=== PATIENT | male | born 1950 | race Caucasian/White ===

== ENCOUNTER 2022-09-24 08:08 | Emergency (ER) | payer OTHER ==
[~2022-09-24] VITALS: Ht 177.8 cm; Wt 108.9 kg
[~2022-09-24 08:08] MED LIST: DONE10 PO; DONE5 PO; QUETIAPINE FUMA50 MG PO; SALM50IP PO; Seroquel50 MG PO; WARF1; [UNRECOGNIZED DRUG - REMARK]; [UNRECOGNIZED DRUG - REMARK]
[2022-09-24 09:15] LABS: BASOPHILS ABSOLUTE AUTO 0.04 K/mm3 (0.00-0.23); BASOPHILS PERCENT AUTO 0 % (0-2); EOSINOPHILS ABSOLUTE AUTO 0.01 K/mm3 (0.00-0.68); EOSINOPHILS PERCENT AUTO 0 % (0-6); Hematocrit 41.7 % (37.0-53.0); Hemoglobin 13.4 g/dL (13.5-17.5); IMMATURE GRAN ABSOLUTE AUTO 0.05 K/mm3 (0.00-0.10); IMMATURE GRAN PERCENT AUTO 0 % (0-1); LYMPHOCYTES ABSOLUTE AUTO 0.53 K/mm3 (0.84-5.20); LYMPHOCYTES PERCENT AUTO 4 % (21-46); MONOCYTES ABSOLUTE AUTO 1.61 K/mm3 (0.16-1.47); MONOCYTES PERCENT AUTO 12 % (4-13); Mean Corpuscular HGB 26.5 pg (26.0-34.0); Mean Corpuscular HGB Conc 32.1 g/dL (31.5-36.5); Mean Corpuscular Volume 82 fL (80-100); Mean Platelet Volume 10.6 fL (9.1-12.4); NEUTROPHILS ABSOLUTE AUTO 11.48 K/mm3 (1.96-9.15); NEUTROPHILS PERCENT AUTO 84 % (41-73); Platelet Count 262 K/mm3 (150-400); RDW Coefficient Variation 14.4 % (11.7-14.2); RDW Standard Deviation 42.8 fL (35.1-46.3); Red Blood Cell Count 5.06 M/mm3 (4.30-5.90); White Blood Cell Count 13.72 K/mm3 (4.00-11.30)
[2022-09-24 09:51] LABS: Albumin, Blood 3.6 g/dL (3.4-5.0); Bilirubin, Total 0.5 mg/dL (0.1-1.0); Bun/Creatinine Ratio 18.5 (12.0-20.0); Calcium, Blood 9.4 mg/dL (8.5-10.1); Creatinine, Blood 0.87 mg/dL (0.60-1.20); Globulin, Blood 3.7 g/dL (2.2-4.0); Potassium, Blood 3.6 mmol/L (3.5-5.5); Total Protein, Blood 7.3 g/dL (6.4-8.2)
[2022-09-24 10:31] LABS: Creatine Kinase MB 33.4 ng/mL (0.0-3.6); Creatine Kinase MB Index 1.6 (0.0-4.0)
[2022-09-24 12:22] LABS: Source, Urine Straight Cath
[2022-09-24] MEDS ORDERED: DONEPEZIL HCL10 M1 PO (12:26)
[2022-09-24] MEDS ORDERED: PRAVASTATIN SOD10 MG PO (12:27)
[2022-09-24] MEDS ORDERED: REMERON30 M9 PO (12:27)
[2022-09-24] MEDS ORDERED: QUETIAPINE FUMA25 MG PO (12:27)
[2022-09-24 12:30] LABS: Appearance, Urine Clear (Clear); Bilirubin, Urine Neg (Neg); Blood, Urine 1+ (Neg); Color, Urine Yellow (P-Yellow); Glucose Qualitative, Urine Neg (Neg); Ketones, Urine 3+ (Neg); Leukocyte Esterase, Urine 1+ (Neg); Nitrite, Urine Neg (Neg); Protein, Urine 2+ (Neg); Specific Gravity, Urine 1.025 (1.003-1.022); Urobilinogen, Urine NORM (Normal)
[2022-09-24 12:36] LABS: Bacteria Rare /hpf; Mucus Mod (0-Heavy); Squamous Epithelial Cells Few /hpf (Few)
[2022-09-24 13:30] VITALS: BP 123/74
== END 2022-09-24 13:51 | disposition home or self-care (01) ==
LOC: ER 08:08
PROVIDERS: Student in an Organized Health Care Education/Training Program
DX: R29.6 Repeated falls (principal); G30.9 Alzheimer's disease, unspecified; F02.80 Dementia in other diseases classified elsewhere, unspecified severity, without behavioral disturbance, psychotic disturbance, mood disturbance, and anxiety; R74.8 Abnormal levels of other serum enzymes; I69.354 Hemiplegia and hemiparesis following cerebral infarction affecting left non-dominant side; I69.328 Other speech and language deficits following cerebral infarction; Z79.899 Other long term (current) drug therapy
CPT/HCPCS: 51701; 70450; 80053; 81001; 82550; 82553; 85025; 93005; 93010; 96360; 99285-25; J7030

== ENCOUNTER → 2023-02-10 | Outpatient (CLI) | payer OTHER ==
[~2023-02-10] MED LIST changes: +DONEPEZIL HCL10 M1 PO; +PRAVASTATIN SOD10 MG PO; +QUETIAPINE FUMA25 MG PO; +REMERON30 M9 PO
[2023-02-10 18:46] LABS: BASOPHILS ABSOLUTE AUTO 0.07 K/mm3 (0.00-0.23); BASOPHILS PERCENT AUTO 1 % (0-2); EOSINOPHILS ABSOLUTE AUTO 0.09 K/mm3 (0.00-0.68); EOSINOPHILS PERCENT AUTO 1 % (0-6); Hematocrit 42.8 % (37.0-53.0); Hemoglobin 13.7 g/dL (13.5-17.5); IMMATURE GRAN ABSOLUTE AUTO 0.03 K/mm3 (0.00-0.10); IMMATURE GRAN PERCENT AUTO 0 % (0-1); LYMPHOCYTES ABSOLUTE AUTO 1.18 K/mm3 (0.84-5.20); LYMPHOCYTES PERCENT AUTO 16 % (21-46); MONOCYTES ABSOLUTE AUTO 0.94 K/mm3 (0.16-1.47); MONOCYTES PERCENT AUTO 13 % (4-13); Mean Corpuscular HGB 26.9 pg (26.0-34.0); Mean Corpuscular Volume 84 fL (80-100); Mean Platelet Volume 12.5 fL (9.1-12.4); NEUTROPHILS ABSOLUTE AUTO 5.02 K/mm3 (1.96-9.15); NEUTROPHILS PERCENT AUTO 69 % (41-73); Platelet Count 215 K/mm3 (150-400); Red Blood Cell Count 5.09 M/mm3 (4.30-5.90); White Blood Cell Count 7.33 K/mm3 (4.00-11.30)
[2023-02-10 19:36] LABS: Alanine Aminotransfer (ALT/SGP 22 U/L (12-78); Albumin, Blood 3.6 g/dL (3.4-5.0); Albumin/Globulin Ratio 0.9 (0.8-1.8); Alk Phos 126 U/L (50-136); Anion Gap 3 mmol/L (6-16); Aspartate Aminotrans (AST/SGOT 20 U/L (12-37); Bilirubin, Total 0.4 mg/dL (0.1-1.0); Blood Urea Nitrogen 13 mg/dL (8-24); Bun/Creatinine Ratio 16.2 (12.0-20.0); CHOL/HDL RATIO 3.7; CO2, Blood 29 mmol/L (21-32); Calcium, Blood 9.1 mg/dL (8.5-10.1); Chloride, Blood 110 mmol/L (98-108); Cholesterol 136 mg/dL (50-200); Globulin, Blood 3.8 g/dL (2.2-4.0); Glomerular Filtration Rate 95 (60-); Glucose, Blood 87 mg/dL (70-99); HDL Cholesterol 37 mg/dL (>39); LDL/HDL RATIO 1.8; Low Density Lipoprotein Chol 68 mg/dL (0-110); Sodium, Blood 142 mmol/L (136-145); Total Protein, Blood 7.4 g/dL (6.4-8.2); Triglycerides 156 mg/dL (30-160); Very Low Density Lipoprot Chol 31 mg/dL (6-32)
== END ==
LOC: LAB 17:13 → LAB SHORT 17:13
PROVIDERS: Nurse Practitioner Family
DX: E78.5 Hyperlipidemia, unspecified (principal); R73.03 Prediabetes
CPT/HCPCS: 80053; 80061; 83036; 85025

== ENCOUNTER → 2024-04-13 | Outpatient (CLI) | payer OTHER ==
[2024-04-13 17:33] LABS: BASOPHILS ABSOLUTE AUTO 0.08 K/mm3 (0.00-0.23); BASOPHILS PERCENT AUTO 1 % (0-2); EOSINOPHILS ABSOLUTE AUTO 0.09 K/mm3 (0.00-0.68); EOSINOPHILS PERCENT AUTO 1 % (0-6); Hematocrit 40.7 % (37.0-53.0); Hemoglobin 13.2 g/dL (13.5-17.5); IMMATURE GRAN ABSOLUTE AUTO 0.06 K/mm3 (0.00-0.10); IMMATURE GRAN PERCENT AUTO 1 % (0-1); LYMPHOCYTES ABSOLUTE AUTO 1.38 K/mm3 (0.84-5.20); LYMPHOCYTES PERCENT AUTO 15 % (21-46); MONOCYTES ABSOLUTE AUTO 1.12 K/mm3 (0.16-1.47); MONOCYTES PERCENT AUTO 12 % (4-13); Mean Corpuscular HGB 27.6 pg (26.0-34.0); Mean Corpuscular HGB Conc 32.4 g/dL (31.5-36.5); Mean Corpuscular Volume 85 fL (80-100); Mean Platelet Volume 11.4 fL (9.1-12.4); NEUTROPHILS ABSOLUTE AUTO 6.39 K/mm3 (1.96-9.15); NEUTROPHILS PERCENT AUTO 70 % (41-73); Platelet Count 234 K/mm3 (150-400); RDW Standard Deviation 43.6 fL (35.1-46.3); Red Blood Cell Count 4.79 M/mm3 (4.30-5.90); White Blood Cell Count 9.12 K/mm3 (4.00-11.30)
[2024-04-13 17:45] LABS: Alanine Aminotransfer (ALT/SGP 36 U/L (12-78); Albumin, Blood 3.2 g/dL (3.4-5.0); Albumin/Globulin Ratio 0.8 (0.8-1.8); Alk Phos 127 U/L (50-136); Anion Gap 8 mmol/L (3-11); Aspartate Aminotrans (AST/SGOT 35 U/L (12-37); Bilirubin, Total 0.4 mg/dL (0.1-1.0); Blood Urea Nitrogen 15 mg/dL (8-24); Bun/Creatinine Ratio 19.9 (12.0-20.0); CHOL/HDL RATIO 3.9; CO2, Blood 27 mmol/L (21-32); Calcium, Blood 8.9 mg/dL (8.5-10.1); Chloride, Blood 109 mmol/L (98-108); Cholesterol 155 mg/dL (50-200); Creatinine, Blood 0.75 mg/dL (0.60-1.20); Globulin, Blood 3.9 g/dL (2.2-4.0); Glomerular Filtration Rate 96 (60-); Glucose, Blood 91 mg/dL (70-99); HDL Cholesterol 40 mg/dL (>39); LDL/HDL RATIO 1.6; Low Density Lipoprotein Chol 63 mg/dL (0-110); Sodium, Blood 140 mmol/L (136-145); Total Protein, Blood 7.1 g/dL (6.4-8.2); Triglycerides 260 mg/dL (30-160); Very Low Density Lipoprot Chol 52 mg/dL (6-32)
== END ==
LOC: LAB SHORT 16:28 → LAB 16:28
PROVIDERS: Nurse Practitioner Family
DX: I10 Essential (primary) hypertension (principal); E78.5 Hyperlipidemia, unspecified; R73.03 Prediabetes
CPT/HCPCS: 80053; 80061; 83036; 85025

== ENCOUNTER 2024-11-26 09:57 | Observation (INO) | payer OTHER ==
[~2024-11-26] VITALS: Ht 167.6 cm; Wt 95.2 kg
[2024-11-26 11:37] LABS: BASOPHILS ABSOLUTE AUTO 0.06 K/mm3 (0.00-0.23); BASOPHILS PERCENT AUTO 1 % (0-2); EOSINOPHILS ABSOLUTE AUTO 0.07 K/mm3 (0.00-0.68); EOSINOPHILS PERCENT AUTO 1 % (0-6); Hematocrit 39.6 % (37.0-53.0); Hemoglobin 12.3 g/dL (13.5-17.5); IMMATURE GRAN ABSOLUTE AUTO 0.05 K/mm3 (0.00-0.10); IMMATURE GRAN PERCENT AUTO 1 % (0-1); LYMPHOCYTES ABSOLUTE AUTO 1.10 K/mm3 (0.84-5.20); LYMPHOCYTES PERCENT AUTO 13 % (21-46); MONOCYTES ABSOLUTE AUTO 1.36 K/mm3 (0.16-1.47); MONOCYTES PERCENT AUTO 16 % (4-13); Mean Corpuscular HGB Conc 31.1 g/dL (31.5-36.5); Mean Corpuscular Volume 86 fL (80-100); NEUTROPHILS ABSOLUTE AUTO 5.94 K/mm3 (1.96-9.15); NEUTROPHILS PERCENT AUTO 69 % (41-73); NRBC ABSOLUTE 0.00 K/mm3 (0.00-0.02); NRBC Auto 0.0 /100 WBC (0.0-0.2); Platelet Count 204 K/mm3 (150-400); RDW Coefficient Variation 14.2 % (11.7-14.2); RDW Standard Deviation 44.3 fL (35.1-46.3)
[2024-11-26 11:54] LABS: Alanine Aminotransfer (ALT/SGP 54.0 U/L (12-78); Albumin, Blood 2.5 g/dL (3.4-5.0); Albumin/Globulin Ratio 0.7 (0.8-1.8); Anion Gap 7.0 mmol/L (3-11); Aspartate Aminotrans (AST/SGOT 76.0 U/L (12-37); Bilirubin, Total 0.8 mg/dL (0.1-1.0); Blood Urea Nitrogen 8.0 mg/dL (8-24); CO2, Blood 25.0 mmol/L (21-32); Calcium, Blood 8.0 mg/dL (8.5-10.1); Chloride, Blood 109.0 mmol/L (98-108); Creatinine, Blood 0.56 mg/dL (0.60-1.20); Globulin, Blood 3.6 g/dL (2.2-4.0); Glucose, Blood 81.0 mg/dL (70-99); Magnesium, Blood 1.9 mg/dL (1.6-2.4); Potassium, Blood 3.2 mmol/L (3.5-5.5); Sodium, Blood 138.0 mmol/L (136-145); Total Protein, Blood 6.1 g/dL (6.4-8.2)
[2024-11-26] MEDS ORDERED: Calcium Gluconate 10% 1,000 MG in NS 50 ML IV ONE (15:50)
[2024-11-26 16:45] LABS: Source, Urine Clean Catch
[2024-11-26 17:04] LABS: Bilirubin, Urine Neg (Neg); Color, Urine Yellow (P-Yellow); Glucose Qualitative, Urine Neg (Neg); Ketones, Urine 3+ (Neg); Leukocyte Esterase, Urine Neg (Neg); Protein, Urine 1+ (Neg); Specific Gravity, Urine 1.020 (1.003-1.022); Urobilinogen, Urine 2+ (Normal)
[2024-11-26 17:20] LABS: White Blood Cells, Urine 0-2 /hpf (0-5)
--- NOTE | 2024-11-26 18:12 | NUR ---
1805- RECIEVED REPORT FROM CHAPARRITA GARCIA IN ER.
[2024-11-26 18:28] VITALS: BP 138/81
--- NOTE | 2024-11-26 19:34 | NUR ---
1820- PT ARRIVED TO MEDICAL FLOOR IN STABLE CONDITION WITH MAZARIEGOS CATHETER. THIS RN LOOKED UP REASON FOR MAZARIEGOS CATHETER AND MAZARIEGOS WAS PLACED AT 1641 FOR ACUTE RETENTION. TWO RN SKIN ASSESSMENT PERFORMED WITH SHELDON SAMANIEGO RN. PT HAS SLIT/WOUND ON ANTERIOR SCROTUM, AND SCATTERED BRUISING/SCABS.
[2024-11-26 20:03] VITALS: BP 124/72
[2024-11-26] MEDS ORDERED: Mirtazapine 30 MG SoluTab PO SCH (21:00)
[2024-11-27 03:50] VITALS: BP 125/82
--- NOTE | 2024-11-27 05:27 | NUR ---
SHIFT SUMMARY PATIENT IS ALERT AND ORIENTED X2. PATIENT HAS HAD NO ACUTE EVENTS THIS SHIFT. VITAL SIGNS REVIEWED. PATIENT HAS NO COMPLAINTS OF SOB, NAUSEA, VOMITTNG OR PAIN. PATIENT ARRIVED TO FLOOR WITH MAZARIEGOS DRAINING ZACK URINE TO GRAVITY. SCATTERED BRUISING THROUGHOUT. BED IN LOCKED AND LOWEST POSITION. CALL LIGHT IN PLACE.
[2024-11-27 05:42] LABS: Anion Gap 8.0 mmol/L (3-11); Blood Urea Nitrogen 8.0 mg/dL (8-24); CO2, Blood 28.0 mmol/L (21-32); Calcium, Blood 8.2 mg/dL (8.5-10.1); Chloride, Blood 108.0 mmol/L (98-108); Creatinine, Blood 0.59 mg/dL (0.60-1.20); Glucose, Blood 85.0 mg/dL (70-99); Potassium, Blood 3.4 mmol/L (3.5-5.5); Sodium, Blood 141.0 mmol/L (136-145)
[2024-11-27 08:23] VITALS: BP 129/47
[2024-11-27] MEDS ORDERED: Enoxaparin 40 MG/0.4 ML SYR SC SCH (09:00)
--- NOTE | 2024-11-27 14:38 | NUR ---
ASSUMED CARE. A/O VERY PLEASENT FORGETFUL PT WHO IS ABLE TO MAKE NEEDS KNOWN, BUT VERY DIFFICULT TO UNDERSTAND DUE TO HX OF CVA. PT WAS SET UP FOR BREAKFAST AND HAD A DIFFICULT TIME FEEDING SELF, OT WILL BE NOTIFIED FOR POSSIBLE MODIFICATIONS TO FEEDING. PT WAS ABLE TO BE ASSISTED OUT OF BED USING THE STEADY AND WAS ABLE TO USE THE BATHROOM WITH OUT ANY ISSUES.
[2024-11-27 15:22] VITALS: BP 123/53
--- NOTE | 2024-11-27 19:17 | NUR ---
SPOKE WITH DAUGHTER DEX CARRILLO, AND BOTH HER AND AGREED THAT PT WOULD BE BETTER OFF IF THEY HAD [facility] FOR PT.. PT AT THIS POINT WANTS TO GO BACK HOME.
[2024-11-27 19:49] VITALS: BP 108/63
--- NOTE | 2024-11-28 03:31 | NUR ---
SHIFT SUMMARY NO ACUTE EVENTS DURING THIS SHIFT. AT SHIFT CHANGE PT FEEDING HIMSELF DINNER, INTAKE 100% WITH GUNITE MIXER HANDLES FOR UTENSILS, PROVIDED BY OT. PT IS A/O X3-4, SLURRED SPEECH D/T HX OF CVA. ACUTE MAZARIEGOS, DRAINING YELLOW COLOR URINE. PT CALLS OUT VOCALIZING AT HS, NOT USING THE CALL LIGHT. ALL NEEDS MET. PT RESTING WELL T/O THE NIGHT HRS. VSS. NO ACUTE DISTRESS NOTED OR REPORTED. BED AT THE LOWEST POSITION, CALL LIGHT W/I REACH. PT REFUSES REPOSITIONING. BED ALARM FOR SAFETY.
[2024-11-28 05:09] LABS: Anion Gap 4.0 mmol/L (3-11); Blood Urea Nitrogen 8.0 mg/dL (8-24); CO2, Blood 31.0 mmol/L (21-32); Calcium, Blood 8.1 mg/dL (8.5-10.1); Chloride, Blood 108.0 mmol/L (98-108); Creatinine, Blood 0.69 mg/dL (0.60-1.20); Glucose, Blood 104.0 mg/dL (70-99); Potassium, Blood 4.0 mmol/L (3.5-5.5); Sodium, Blood 139.0 mmol/L (136-145)
[2024-11-28 05:11] VITALS: BP 114/69
[2024-11-28 07:29] VITALS: BP 120/53
[2024-11-28 15:48] VITALS: BP 113/70
[2024-11-28 19:48] VITALS: BP 107/62
--- NOTE | 2024-11-29 03:34 | NUR ---
SHIFT SUMMARY NO ACUTE EVENTS DURING THIS SHIFT. PT IS A/O X3, MUMBLED SPEECH D/T H CVA. ALL NEEDS MET. PT RESTING WELL T/O THE NIGHT HRS. PT REFUSES REPOSITIONING. ACUTE MAZARIEGOS DRAINING YELLOW COLOR URINE. PT USED BEDPAN D/T WEAKNESS, 2-PERSON MAX ASSIST DID NOT WORK OUT, D/T PT'S WEAKNESS. VSS. REFUSED DINNER. SNACK PROVIDED AT HS. BED ALARM FOR SAFETY. BED AT THE LOWEST POSITION, CALL LIGHT W/I REACH.
[2024-11-29 04:47] VITALS: BP 112/58
[2024-11-29 07:28] VITALS: BP 123/70
[2024-11-29] MEDS ORDERED: POTCHL20ER PO (12:02)
[2024-11-29] MEDS ORDERED: MAGNESIUM OXID400 M1 PO (12:02)
--- NOTE | 2024-11-29 14:30 | NUR ---
RN NOTE MR LEON IS ORIENTATED TO SELF, PLACE, NOT TO DATE. HIS SPEACH IS DIFFICULT TO UNDERSTAND MOST OF THE TIME, HE TRIES HARD TO MAKE HIMSELF UNDERSTOOD. HE ATE WELL FOR BREAKFAST AND LUNCH, FEEDING HIMSELF FOR PART OF THE MEAL AND ASSISTANCE WITH THE REST. HIS SKIN LOOKS INTACT, GIVEN BED BATH. MAZARIEGOS REMOVED AT 1305HRS, NO UOP YET. TURN AND REPOSITION IN BED Q2HRS. PT ABLE TO ASSIST A LITTLE, 2 PERSON ASSISTANCE. PLAN TO GO TO [facility] TODAY. REPORT CALLED TO SIDNEY. BED LOW, CALL LIGHT IN REACH. BED ALARM IN USE.
--- NOTE | 2024-11-29 16:35 | NUR ---
DISCHARGED VIA W/C TRANSPORT AT 1635HRS TO TRANSFER TO [facility]. TRANSFERED FROM BED TO W/C VIA [facility]. PTS WHEELCHAIR WENTS WITH HIM IN TRANSPORT VAN. YAIR WAS REMOVED AT 1305, HE URINATED A VERY SMALL VOLUME SINCE. REPORT PREVIOUSLY CALLED TO S[facility]NEY IN [facility]. NO NEW QUESTIONS OR CONCERNS AT TIME OF DISCHARGE.
== END 2024-11-29 16:42 ==
LOC: ER 09:57 → ERHOLD 09:58 → MEDS 18:19
PROVIDERS: Student in an Organized Health Care Education/Training Program; ADMIT Student in an Organized Health Care Education/Training Program
DX: E87.6 Hypokalemia (principal); E83.51 Hypocalcemia; G30.9 Alzheimer's disease, unspecified; F02.80 Dementia in other diseases classified elsewhere, unspecified severity, without behavioral disturbance, psychotic disturbance, mood disturbance, and anxiety; M62.82 Rhabdomyolysis; E78.5 Hyperlipidemia, unspecified; M19.90 Unspecified osteoarthritis, unspecified site; Z66 Do not resuscitate; Z85.46 Personal history of malignant neoplasm of prostate; Z86.73 Personal history of transient ischemic attack (TIA), and cerebral infarction without residual deficits; Z79.899 Other long term (current) drug therapy; Z99.3 Dependence on wheelchair; W18.30XA Fall on same level, unspecified, initial encounter
CPT/HCPCS: 36415; 51702; 80048; 80053; 81001; 82550; 83735; 85025; 96361-59; 96372; 96374-59; 97163; 97165; 97530; 97535; 99285-25; A9270; G0378; J0612; J1650; J7120